=== PATIENT | female | born 1995 | race Two or more races ===

== ENCOUNTER 2017-06-14 05:19 | Day surgery (SDC) | payer MEDICAID ==
[2017-06-08 10:54] LABS: APPEARANCE,URINE SLIGHTLY-CLOUDY; BILIRUBIN,URINE NEGATIVE (NEGATIVE); GLUCOSE, URINE NEGATIVE (NEGATIVE); KETONES,URINE NEGATIVE (NEGATIVE); LEUKOCYTE ESTERASE,URINE SMALL (NEGATIVE); NITRITE,URINE NEGATIVE (NEGATIVE); PROTEIN,URINE NEGATIVE (NEGATIVE); URINE SPECIFIC GRAVITY 1.018; UROBILINOGEN,URINE NEGATIVE mg/dL (<2.0)
[2017-06-08 10:57] LABS: HEMATOCRIT 37.9 % (36.0-47.0); HEMOGLOBIN 12.7 g/dL (12.0-15.5); HGB HCT DIFFERENCE 0.2; MEAN CORPUSCULAR HEMOGLOBIN 28.6 pg (27.0-33.4); MEAN CORPUSCULAR HGB CONC 33.5 g/dL (32.0-36.0); MEAN CORPUSCULAR VOLUME 85 fl (80-97); RED BLOOD COUNT 4.45 10^6/uL (3.72-5.28); RED CELL DISTRIBUTION WIDTH 13.1 % (11.5-14.0); WHITE BLOOD COUNT 5.5 10^3/uL (4.0-10.5)
[~2017-06-14 05:19] MED LIST: BUPIVACAINE HCL 0.25 % INJ/PF (2.5 MG/1 ML) 30 ML VIAL ONE; LACTATED RINGERS 1000 ML IV PRN; LIDOCAINE 0.5% INJ-PF (5 MG/ML) 50 ML SDV SUBCUT PRN
[2017-06-14] MEDS ORDERED: MIDAZOLAM 2 MG/2 ML INJ ONE (06:54)
[2017-06-14] MEDS ORDERED: FENTANYL CITRATE INJ/PF 100 MCG/2 ML AMPUL ONE (06:54)
[2017-06-14] MEDS ORDERED: EPHEDRINE SULFATE INJ 50 MG/1 ML AMPULE ONE (06:55)
[2017-06-14] MEDS ORDERED: DEXMEDETOMIDINE INJ 80 MCG/20 ML VIAL IV ONE (06:55)
[2017-06-14] MEDS ORDERED: ACETAMINOPHEN 100 ML IV ONE (06:55)
[2017-06-14] MEDS ORDERED: PROPOFOL INJ 200 MG/20 ML VIAL IV ONE (06:55)
[2017-06-14] MEDS ORDERED: MORPHINE SULFATE 10 MG/ML INJ IV PRN (07:11)
[2017-06-14] MEDS ORDERED: FENTANYL CITRATE INJ/PF 100 MCG/2 ML AMPUL IV PRN ×3 (07:11)
[2017-06-14] MEDS ORDERED: PROMETHAZINE HCL INJ 25 MG/1 ML VIAL IV PRN ×2 (07:11)
[2017-06-14] MEDS ORDERED: ONDANSETRON HCL INJ/PF 4 MG/2 ML SDV IV PRN (07:11)
[2017-06-14] MEDS ORDERED: DIPHENHYDRAMINE HCL 50 MG/ML VIAL IV PRN (07:11)
[2017-06-14] MEDS ORDERED: MEPERIDINE HCL/PF INJ 25 MG/1 ML DISP.SYRIN IV PRN (07:11)
[2017-06-14] MEDS: FENTANYL CITRATE INJ/PF 100 MCG/2 ML AMPUL ONE ×2 (08:35→08:40)
[2017-06-14] MEDS ORDERED: ONDANSETRON 4 MG TAB.RAPDIS PO PRN (09:07)
[2017-06-14] MEDS ORDERED: OXYCODONE-ACETAMINOPHEN 5-325 MG TABLET PO PRN (09:07)
--- NOTE | 2017-06-14 09:13 | OPERATIVE REPORT E ---
Operative Report NAME: PIYUSH GUTIÉRREZ : 1995 AGE: 22Y DATE OF SURGERY: 06/14/2017 ROOM: PREOPERATIVE DIAGNOSIS: MULTIPARITY, DESIRES STERILIZATION. POSTOPERATIVE DIAGNOSIS: MULTIPARITY, DESIRES STERILIZATION. OPERATION: Bilateral tubal occlusion using Filshie clips and IUD removal. SURGEON: Andriy PACHECO M.D. ANESTHESIA: General. ESTIMATED BLOOD LOSS: Less than 5 mL. TISSUE REMOVED OR ALTERED: No tissue was removed. IUD was sent to pathology for identification only. DESCRIPTION OF PROCEDURE: The patient placed in the dorsal lithotomy position, prepped and draped in a sterile fashion. A speculum was placed, cervix visualized and grasped with a single-tooth tenaculum, and the uterus was sounded up to 12 cm. The IUD string was visualized, grasped with a ring forceps, and the string broke and could not be further grasped. Attention turned to the abdomen where a subungual left of midline incision was made. The trocar was introduced with this placed in the abdomen for visualization of tubes, uterus and ovaries. Patient had mono spotty areas of endometriosis on the left uterosacral ligament. The right fallopian tube was banded in the midportion using Filshie clips. Good purchase of tissue was noted. Procedure was completed on the left, again with a good purchase of tissue noticed. The abdomen deflated and trocar sleeve is removed *------* 0 Vicryl for the fascia *------* subcu. Attention then turned back to the pelvis where a hysteroscope was placed. IUD was identified and noted to be in a crosswise position. The cervix was dilated and using sharp curettage, the IUD was removed. Repeat hysteroscopy showed no other foreign bodies. The single tooth tenaculum was removed. Weighted speculum was removed and the procedure was terminated. ADDENDUM: Prior to doing the laparoscope, the bladder was drained with the catheter. DICTATING PHYSICIAN: Andriy PACHECO M.D. [id number] PHY#: [id number] ID: [id number] JOB#: [id number] ACCT: [id number] cc:Andriy PACHECO M.D. >
[2017-06-14] MEDS ORDERED: OXYCODONE-ACETAMINOPHEN 5-325 MG TABLET ONE (09:17)
[2017-06-14 12:25] VITALS: BP 113/70
[2017-06-14] MEDS ORDERED: IBUPROFEN 800 MG TABLET PO SCH (14:00)
[2017-06-14] MEDS ORDERED: LIDOCAINE 2% INJ-PF (20 MG/ML) 10 ML AMPUL ONE (14:34)
[2017-06-14] MEDS ORDERED: GLYCOPYRROLATE INJ 0.4 MG/2 ML VIAL ONE (14:34)
[2017-06-14] MEDS ORDERED: DEXAMETHASONE SOD PHOSPHATE INJ 4 MG/1 ML VIAL ONE (14:34)
[2017-06-14] MEDS ORDERED: METOCLOPRAMIDE HCL INJ/PF 10 MG/2 ML SDV ONE (14:34)
[2017-06-14] MEDS ORDERED: ONDANSETRON HCL INJ/PF 4 MG/2 ML SDV ONE (14:34)
[2017-06-14] MEDS ORDERED: KETOROLAC TROMETHAMINE 60 MG/2 ML SDV ONE (14:34)
[2017-06-14] MEDS ORDERED: SUCCINYLCHOLINE CHLORIDE INJ 200 MG/10 ML VIAL ONE (14:34)
== END 2017-06-14 10:15 | disposition home or self-care (01) ==
LOC: OROUT 05:19
PROVIDERS: ATTEND Obstetrics & Gynecology Gynecology
PROC: 0UPD8HZ Removal of Contraceptive Device from Uterus and Cervix, Via Natural or Artificial Opening Endoscopic (ICD-10-PCS; 2017-06-14)
PROC: 0UL74CZ Occlusion of Bilateral Fallopian Tubes with Extraluminal Device, Percutaneous Endoscopic Approach (ICD-10-PCS; principal; 2017-06-14 07:30)
DX: Z30.2 Encounter for sterilization (principal); Z30.432 Encounter for removal of intrauterine contraceptive device
CPT/HCPCS: 36415; 85027; 81005; 81025; 88300 ×2; 58671; 58579; J2250; J1100; J1885; J3010; J3490 ×3; J2765; J0330; J2405; S0020; J2704; J0131